=== PATIENT | female | born 1940 | race Caucasian/White ===

== ENCOUNTER → 2021-10-04 | Outpatient (CLI) | payer MEDICARE ==
--- NOTE | 2021-10-05 10:24 | CARD ---
MR#: [id number] Date of Study: 10/04/2021 Ordering Physician: TARA LOPEZ, Referring Physician: TARA LOPEZ Tech: Antonio Yanes [facility] APPROVED REPORT EXAM: Two-dimensional and M-mode echocardiogram with Doppler and color Doppler. Other Information Quality : GoodHR: 64bpm Rhythm : NSR INDICATION Hypertension/HCVD RISK FACTORS Hypertension Bilateral mastectomy with implants. 2D DIMENSIONS Left Atrium(2D)3.9 (1.6-4.0cm)IVSd0.9 (0.7-1.1cm) Aortic Root(2D)2.9 (2.0-3.7cm)LVDd3.7 (3.9-5.9cm) LVOT Diameter1.6 (1.8-2.4cm)PWd0.9 (0.7-1.1cm) LVDs1.8 (2.5-4.0cm)FS (%) 51.3 % SV49.3 ml Aortic Valve AoV Peak Neel.172.4cm/sAoV VTI35.9cm AO Peak GR.11.9mmHgLVOT Peak Neel.129.9cm/s AO Mean GR.6mmHgAVA (VMAX)1.54cm2 Mitral Valve MV E Qdsghbmf316.7cm/sMV E Peak Gr.7mmHg MV DECEL [id number] A Kumulkdo646.2cm/s MV E Mean Gr.2mmHgE/A Ratio0.9 Pulmonary Valve PV Peak Nktuwflz75.2cm/s Tricuspid Valve TR P. Yurohkcl692hx/sTR Peak Gr.29mmHg Pulmonary Vein S1 Ogdfesjj95.4cm/sD2 Gdsrxpqu17.2cm/s LEFT VENTRICLE The left ventricle is normal size. There is borderline concentric left ventricular hypertrophy. The l eft ventricular systolic function is normal and the ejection fraction is within normal range. Left ve ntricular ejection fraction of 55 to 60%. There is normal LV segmental wall motion. Transmitral Doppl er flow pattern is Grade I-abnormal relaxation pattern. No left ventricle thrombus noted on this stud y. There is no ventricular septal defect visualized. There is no left ventricular aneurysm. There is no mass noted in the left ventricle. RIGHT VENTRICLE The right ventricle is normal size. There is normal right ventricular wall thickness. The right ventr icular systolic function is normal. ATRIA The left atrium is mildly dilated. The right atrium size is normal. The interatrial septum is intact with no evidence for an atrial septal defect or patent foramen ovale as noted on 2-D or Doppler imagi ng. AORTIC VALVE The aortic valve is mildly sclerotic. The aortic valve is trileaflet. Doppler and Color Flow revealed no significant aortic regurgitation. There is no significant aortic valvular stenosis. There is no a ortic valvular vegetation. MITRAL VALVE The mitral valve is normal in structure and function. Mitral annular calcification is mild. There is no evidence of mitral valve prolapse. There is no mitral valve stenosis. Doppler and Color Flow revea led trace mitral valve regurgitation. TRICUSPID VALVE The tricuspid valve is normal in structure and function. Doppler and Color Flow revealed trace to mil d tricuspid regurgitation. The PA pressure was estimated at 36 mmHg. There is no tricuspid valve prol apse or vegetation. There is no tricuspid valve stenosis. PULMONIC VALVE The pulmonary valve is normal in structure and function. Doppler and Color Flow revealed no pulmonic valvular regurgitation. There is no pulmonic valvular stenosis. GREAT VESSELS The aortic root is normal in size. The ascending aorta is normal in size. The pulmonary artery is nor mal. The IVC is normal in size and collapses >50% with inspiration. PERICARDIAL EFFUSION There is no pleural effusion. There is no evidence of significant pericardial effusion. Critical Notification Critical Value: No <Conclusion> The left ventricle is normal size. The left ventricular systolic function is normal and the ejection fraction is within normal range. Left ventricular ejection fraction of 55 to 60%. There is borderline concentric left ventricular hypertrophy. Doppler and Color Flow revealed no significant aortic regurgitation. There is no significant aortic valvular stenosis. Doppler and Color Flow revealed trace mitral valve regurgitation. Doppler and Color Flow revealed trace to mild tricuspid regurgitation. The PA pressure was estimated at 36 mmHg. Signed by : Aleksandar Snider MD Electronically Approved : 10/05/2021 10:23:58
== END ==
LOC: ECHO 09:01
PROVIDERS: ATTEND Internal Medicine
DX: I08.3 Combined rheumatic disorders of mitral, aortic and tricuspid valves (principal); I10 Essential (primary) hypertension; R60.9 Edema, unspecified
CPT/HCPCS: 93306; C8929